=== PATIENT | female | born 1990 | race Caucasian/White ===

== ENCOUNTER 2017-12-21 18:52 | Emergency (ER) | payer OTHER ==
[~2017-12-21] VITALS: Ht 160 cm; Wt 49.4 kg
[~2017-12-21 18:52] MED LIST: ABILIFY 5 MG TAB5 M1 PO; AMOXICILLIN 50500 MG PO; DELUXE TABLET1 EACH PO; FLEXERIL PO; HYDROXYZINE HCL10 M1 PO; HYDROXYZINE HCL50 MG PO; LORTAB 5 MG/5001 TA1 PO; NOHOMEMEDICATIONS; NORCO 5-325 TA1 EACH PO; VICODIN 5-5001 EACH PO; ZANTAC 150MG T150 M1 PO
[2017-12-21] MEDS ORDERED: XULANE PATCH1 EACH (19:10)
[2017-12-21] MEDS ORDERED: AMOXICILLIN 50500 MG PO (19:12)
[2017-12-21] MEDS ORDERED: PROAIR HFA8.5 GM INH (19:13)
[2017-12-21 19:18] LABS: WBC 8.2 thou/uL (4.0-11.0)
[2017-12-21 19:19] LABS: ABSOLUTE NEUTROPHILS 6.6 thou/uL (1.4-8.2); BASOPHILS 0.3 % (0.0-2.0); EOSINOPHILS 0.3 % (0.0-3.0); HEMOGLOBIN 13.5 gm/dL (12.0-15.0); LYMPHOCYTES 12.1 % (24.0-44.0); MCH 30.7 pg (26.0-34.0); MCHC 34.5 g/dL (28.0-37.0); MCV 89.1 fL (80.0-100.0); MONOCYTES 6.2 % (1.0-8.0); PLATELET COUNT 250 thou/uL (150-400); POLYS 81.1 % (36.0-66.0); RBC 4.38 mil/uL (4.20-5.00)
[2017-12-21 19:25] LABS: CALCIUM 8.7 mg/dL (8.5-10.1); CREATININE 0.8 mg/dL (0.6-1.0)
[2017-12-21 20:29] LABS: URINE BILIRUBIN NEGATIVE (Negative); URINE BLOOD TRACE (Negative); URINE CLARITY CLEAR; URINE COLOR YELLOW; URINE GLUCOSE-RANDOM* NEGATIVE (Negative); URINE KETONES NEGATIVE (Negative); URINE NITRITE-REFLEX NEGATIVE (Negative); URINE PROTEIN (DIPSTICK) NEGATIVE (Negative); URINE UROBILINOGEN 0.2 E.U./dl (0.2-1.0)
[2017-12-21 20:30] LABS: URINE LEUKOCYTES-REFLEX 2+ (Negative)
[2017-12-21 20:38] LABS: BACTERIA-REFLEX 1-9 Few /HPF (None Seen); SQUAMOUS >10 Many /LPF (0-3); URINE WBC-REFLEX >25 Many /HPF (0-5)
[2017-12-21 20:39] LABS: CASTS None Seen /LPF (None Seen); CRYSTALS None Seen /LPF (None Seen); URINE RBC 3-10 Few /HPF (0-2)
[2017-12-21 21:22] LABS: AMP/METHAMP Negative (Negative); BARBITURATES Negative (Negative); BENZODIAZEPINES Negative (Negative); COCAINE Negative (Negative); METHADONE Negative (Negative); OPIATES Negative (Negative); PCP Negative (Negative)
[2017-12-21] MEDS ORDERED: AUGMENTIN 875-1 EACH PO (21:46)
[2017-12-21] MEDS ORDERED: IBUPROFEN 800800 M1 PO (21:46)
[2017-12-21 22:17] VITALS: BP 91/40
== END 2017-12-21 22:18 | disposition home or self-care (01) ==
LOC: ER 18:52
PROVIDERS: Nurse Practitioner Family
DX: B34.9 Viral infection, unspecified (principal); N39.0 Urinary tract infection, site not specified; F17.210 Nicotine dependence, cigarettes, uncomplicated; F31.9 Bipolar disorder, unspecified; F90.9 Attention-deficit hyperactivity disorder, unspecified type